=== PATIENT | female | born 1980 | race Caucasian/White ===

== ENCOUNTER 2022-08-27 20:31 | Emergency (ER) | payer MEDICAID, SELFPAY ==
[2022-08-27 20:31] VITALS: BMI 43.2
[2022-08-27 21:13] VITALS: BP 140/92; PULSE 103; RESP 16; TEMP 37.1; O2SAT 100
[2022-08-27] MEDS: ziprasidone 20 mg/mL SDV IM (21:15)
[2022-08-27] MEDS: LORazepam 2 mg/mL INJ 1 mL IM (21:15)
--- NOTE | 2022-08-27 21:16 | ECG_ITS ---
[facility] Test Date: 2022-08-27 Pat Name: Angela Lyles Department: Room: Gender: Female Site Surveyor: : 1980 Requested By: Walter Zhong Order Number: [id number] Qi MD: Coby Issa M.D. Measurements Intervals [place] Rate: 100 P: 143 AR: 198 QRS: 112 QRSD: 85 T: 121 QT: 334 QTc: 432 Interpretive Statements SINUS TACHYCARDIA ARM LEADS REVERSED [INVERTED P AND QRS IN I] ABNORMAL RHYTHM ECG No previous ECG available for comparison Electronically Signed On 08-28-2022 7:08:12 CNC LATHE PROGRAMMER by Coby Issa M.D. [email or web address] Magicalleg[facility] greenvilleBioMimetix Pharmaceuticalselect medical specialty [email or web address]/store/NU/[id number] f
[2022-08-27 21:33] LABS: Basophils # 0.1 10^3/uL (0.0-0.1); Basophils % 0.3 %; Eosinophils # 0.3 10^3/uL (0.0-0.8); Hematocrit 47.2 % (37.0-47.0); Hemoglobin 15.6 g/dL (11.5-15.3); Lymphocytes % 14.1 %; Mean Corpuscular HGB Conc 33.1 g/dL (30.0-36.0); Mean Corpuscular Hemoglobin 29.5 pg (28.0-34.0); Mean Corpuscular Volume 89.4 fl (81-99); Mean Platelet Volume 9.4 fL (7.4-10.4); Monocytes # 0.7 10^3/uL (0.2-0.9); Monocytes % 4.9 %; Neutrophils # 11.33 10^3/uL (1.8-7.7); Neutrophils % 78.3 %; Nucleated Red Blood Cells % 0 %; Platelet Count 325 10^3/cmm (130-400); Red Blood Count 5.28 10^6/uL (4.1-5.3); Red Cell Distribution Width 13.7 % (12.1-15.1); White Blood Count 14.5 10^3/uL (4.0-10.0)
--- NOTE | 2022-08-27 21:59 | ED.C_ITS ---
HPI - Psych General: Chief Complaint: Psychiatric Symptoms Stated Complaint: MHE Time Seen by Provider: 08/27/22 20:51 Source: patient and police History of Present Illness: 41-year-old female presenting in law enforcement custody in [facility]. She is yelling in the hallway of the emergency department. She is belligerent. She uses profanity. She despite repeated requests will not lower her voice. On my examination, she is tearful. She is argumentative. When asked if she had any thoughts about harming herself she said why not . When asked if she had a plan, she says, go ask my dad . She repeatedly asks to go smoke a cigarette despite being told she may not. When asked if she would like to be medicated with sedatives due to the fact that she is being so belligerent and verbally abusive to literally everyone around her, she states absolutely . She is clearly not rational in her thinking currently. MD complaint: feels depressed and altered mental status Onset (ago): hour(s) Duration: constant History of same: Yes Relieving factors: none Exacerbating factors: other Context: recent alcohol abuse Associated psychiatric symptoms: depression and suicidal ideation Associated symptoms: Deny auditory hallucinations Treatments prior to arrival: physical restraints If self harm: admits thoughts of self harm Review of Systems General: Reports: ROS unobtainable due to medical condition Const: Denies: fever(s) ENMT: Denies: throat pain Card: Denies: chest pain GI: Denies: vomiting Psych: Denies: auditory hallucinations Physical Exam Const: EXAM LIMITATIONS: altered mental status and behavioral limitations GENERAL APPEARANCE: combative, disheveled and odor of alcohol detected; not cooperative and not ill appearing NUTRITIONAL APPEARANCE: obese ORIENTATION/CONSCIOUSNESS: Yes awake, Yes oriented to person and Yes oriented to place; not oriented to time HENMT: COMMON NORMALS: normocephalic, atraumatic and Normal external nose present HEAD & SCALP: normocephalic and atraumatic FACE & SINUS: normal facial exam and face symmetric NOSE: Normal external nose present Eye: COMMON NORMALS: Equal, round and reactive pupils present and EOMs intact bilaterally PUPIL: Yes Equal, round and reactive pupils present Neck/C-Spine: COMMON NORMALS: full ROM GENERAL: Yes trachea midline Chest: CHEST: Yes Symmetrical chest wall rise Resp: COMMON NORMALS: normal respiratory effort, No use of accessory muscles and clear to auscultation bilaterally AUSCULTATION: clear to auscultation bilaterally Cardio: COMMON NORMALS: regular rate and regular rhythm RATE: regular rate RHYTHM: regular rhythm GI: COMMON NORMALS: Soft to palpation PALPATION: Yes Soft to palpation Extremity: COMMON NORMALS: no pedal edema Neuro: DOTTIE COMA SCALE: document GCS findings Dottie coma scale eye opening: Spontaneous Dottie coma scale verbal response: Orientated Dottie coma scale motor response: Obey commands [place] coma scale total score: 15 SENSORIUM/ORIENTATION: Yes oriented to person, Yes oriented to place and No oriented to time Psych: COMMON NORMALS: negative for cooperative ATTITUDE: Yes uncooper ative, Yes Belligerent attititude/behavior present, Yes agitated and Yes aggressive ACTIVITY/MOTOR BEHAVIOR: Yes appropriate eye contact and Yes psychomotor agitation SPEECH: Yes Pressured speech present and Yes slurred MOOD & AFFECT: Yes depressed mood and Yes expansive affect THOUGHT PROCESS: Circumstantial thought process present and Illogical thought process present THOUGHT CONTENT: Yes Suicidality present and No Hallucination(s) present ATTE NTION/CONCENTRATION: Yes attention grossly impaired and Yes concentration grossly impaired MEMORY/COGNITION: Yes cognition grossly intact INSIGHT: Limited insight present (Psych) JUDGEMENT: Limited judgement present (Psych) Skin: COMMON NORMALS: no rashes or lesions noted GENERAL SKIN EXAM: no rashes or lesions noted Face to Face: Restrn/Seclusion Events leading up to initiation: Verbalizing threat to self or others Evaluation of patient's immediate situation: Alert and oriented, Signs of physical distress and Signs of psychological distress Patient reaction since intervention applied: De-escalation/no displays of v iolent/destructive behavior Recent labs reviewed: Yes Review of medications: Yes Patient's current medical/behavioral condition: No new concerns since last ROS Need for restraint or seclusion is: No longer present Attending notified: Attending completed assessment Course Vital Signs: Vital signs: Vital Signs Temperature 98.8 F 08/27/22 21:13 Pulse Rate 74 08/28/22 03:45 Respiratory Rate 16 08/28/22 03:45 Blood Pressure 131/79 08/28/22 03:45 Pulse Oximetry 97 08/27/22 22:06 Oxygen Delivery Me thod 08/28/22 03:45 MDM - Psych Medical Decision Making Patient presented intoxicated on some form of substance although her alcohol level is nondetectable. She was actually asking for a sedative to calm her down. She was given ketamine, followed by Judit and Ativan with good result. Cuffs were removed. She did not have to be restrained after law enforcement took cuffs off. She has been cooperative after waking. 04:25-patient now awake. She is cooperative. She notes that while she has had suicidal ideations in the more distant past, she is not suicidal currently. She has no homicidal ideation. Laboratory shows a white blood cell count of 14.5 with hemoglobin of 15. Laboratories otherwise normal. Tylenol salicylate and alcohol levels are all negative. Urine drug screen is pending. Urinalysis is pending. EKG shows sinus tachycardia without ST change. Her urine drug screen is positive for amphetamine. She maintains that she is not suicidal or homicidal. She will be allowed discharge. Lab Data 08/27/22 21:25 08/27/22 21:25 Laboratory Results WBC 14.5 10^3/uL (4.0-10.0) H 08/27/22 21:25 RBC 5.28 10^6/uL (4.1-5.3) 08/27/22 21:25 Hgb 15.6 g/dL (11.5-15.3) H 08/27/22 21:25 Hct 47.2 % (37.0-47.0) H 08/27/22 21:25 MCV 89.4 fl (81-99) 08/27/22 21:25 MCH 29.5 pg (28.0-34.0) 08/27/22 21: MCHC 33.1 g/dL (30.0-36.0) 08/27/22 21:25 RDW 13.7 % (12.1-15.1) 08/27/22 21: Plt Count 325 10^3/cmm (130-400) 08/27/22 21: MPV 9.4 fL (7.4-10.4) 08/27/22 21:25 Neut % (Auto) 78.3 % 08/27/22: Lymph % (Auto) 14.1 % 08/27/22: [place] % (Auto) 4.9 % 08/27/22 21: Eos % (Auto) 2.0 % 08/27/22 21:25 Baso % (Auto) 0.3 % 08/27/22 21:25 Neut # (Auto) 11.33 10^3/uL (1.8-7.7) H 08/27/22 21:25 Lymph # (Auto) 2.0 10^3/uL (0.8-4.8) 08/27/22 21:25 [place] # (Auto) 0.7 10^3/uL (0.2-0.9) 08/27/22 21:25 Eos # (Auto) 0.3 10^3/uL (0.0-0.8) 08/27/22: Baso # (Auto) 0.1 10^3/uL (0.0-0.1) 08/27/22: Nucleated RBC % (auto) 0 % 08/27/22: Nucleated RBCs # 0.0 /100WBC 08/27/22 21:25 Sodium 135 mmol/L (136-145) L 08/27/22 21:25 Potassium 3.5 mmol/L (3.5-5.1) 08/27/22 21:25 Chloride 98 mmol/L (98-107) 08/27/22 21:25 Carbon Dioxide 24 mmol/L (22-29) 08/27/22 21:25 Anion Gap 16.5 (5-19) 08/27/22 21:25 BUN 9 mg/dL (6-20) 08/27/22 21:25 Creatinine 0.6 mg/dL (0.5-0.9) 08/27/22 21:25 GFR Calculation 111.3 mL/min (90-130) 08/27/22 21:25 Glucose 132 mg/dL (65-115) H 08/27/22 21:25 Calculated Osmolality 281 mOsm/kg (285-295) L 08/27/22:25 Calcium 9.3 mg/dL (8.5-10.5) 08/27/22 21:25 Total Bilirubin 0.7 mg/dL (0.15-1.2) 08/27/22 21:25 AST 19 U/L (0-32) 08/27/22 21:25 ALT 17 U/L (0-33) 08/27/22 21:25 Alkaline Phosphatase 82 U/L (35-105) 08/27/22 21:25 Total Protein 7.9 g/dL (6.6-8.7) 08/27/22 21:25 Albumin 4.1 g/dL (3.5-5.2) 08/27/22 21:25 Globulin 3.8 g/dL (1.3-4.6) 08/27/22 21:25 TSH 0.85 uIU/mL (0.27-4.20) 08/27/22 21:25 HCG, Qual Negative (Negative) 08/28/22 04:00 Urine Color Yellow (Yellow) 08/28/22 04:00 Urine Appearance Cloudy (CLEAR) A 08/28/22 04:00 Urine pH 5 (5-7) 08/28/22 04:00 Ur Specific [place] 1.030 (1.005-1.030) 08/28/22 04:00 Urine Protein Trace (Negative) 08/28/22 04:00 Urine Glucose (UA) Norm (Normal) 08/28/22 04:00 Urine Ketones 1+ (Negative) H 08/28/22 04:00 Urine Blood Neg (Negative) 08/28/22 04:00 Urine Nitrate Negative (Negative) 08/28/22 04:00 Urine Bilirubin 1+ (Negative) H 08/28/22 04:00 Urine Urobilinogen 1 mg/dL (Negative) H 08/28/22 04:00 Ur Leukocyte Esterase Negative (Negative) 08/28/22 04:00 Urine RBC 0-4 /hpf (0-2) H 08/28/22 04:00 Urine WBC 0-4 /hpf (0-5) H 08/28/22 04:00 Ur Squamous Epith Cells 0-4 /hpf (0-5) H 08/28/22 04:00 Other Crystals Amm biurate /hpf 08/28/22 04:00 Amorphous Sediment 4+ /hpf 08/28/22 04:00 Urine Bacteria Trace /hpf (NONE) 08/28/22 04:00 Urine Mucus 2+ /hpf 08/28/22 04:00 Salicylates < 0.3 mg/dL (3-10) L 08/27/22 21:25 Urine Opiates Screen Negative ng/mL (Negative) 08/28/22 04:00 Acetaminophen < 5.0 ug/mL (10-30) L 08/27/22 21:25 Ur Barbiturates Screen Negative ng/mL (Negative) 08/28/22 04:00 Ur Phencyclidine Scrn Negative ng/mL (Negative) 08/28/22 04:00 Ur Amphetamines Screen Positive ng/mL (Negative) H 08/28/22 04:00 U Benzodiazepines Scrn Positive ng/mL (Negative) H 08/28/22 04:00 Urine Cocaine Screen Negative ng/mL (Negative) 08/28/22 04:00 U Marijuana (THC) Screen Negative ng/mL (Negative) 08/28/22 04:00 Ethyl Alcohol < 10 mg/dL (0-10) 08/27/22 21:25 SARS-CoV-2 Ag (Rapid) Negative (Negative) 08/28/22 04:00 Discharge Plan Discharge Patient Disposition: Home Clinical Impression: Drug-induced psychotic disorder Condition: Stable Discharge Orders: Discharge ED (Routine); Ordered 08/28/22 Ordered By: Walter Rose Patient Instructions: Methamphetamine Use Disorder (ED) Activity Restrictions/Additional Instructions: Return for any thoughts or wishes with a current plan to harm your self or anyone else. Coding Level of Care Code ED Roll Picker for Benjamín Fwd Exam Comprehensive
[2022-08-27 22:06] VITALS: PULSE 100; RESP 26; O2SAT 97
[2022-08-27 22:07] LABS: Alanine Aminotransferase 17 U/L (0-33); Albumin Level 4.1 g/dL (3.5-5.2); Alkaline Phosphatase 82 U/L (35-105); Anion Gap 16.5 (5-19); Aspartate Amino Transferase 19 U/L (0-32); Blood Urea Nitrogen 9 mg/dL (6-20); Calcium 9.3 mg/dL (8.5-10.5); Carbon Dioxide 24 mmol/L (22-29); Chloride 98 mmol/L (98-107); Globulin 3.8 g/dL (1.3-4.6); Glomerular Filtration Rate 111.3 mL/min (90-130); Glucose 132 mg/dL (65-115); Osmolality Calculated 281 mOsm/kg (285-295); Potassium 3.5 mmol/L (3.5-5.1); Sodium 135 mmol/L (136-145); Thyroid Stimulating Hormone 0.85 uIU/mL (0.27-4.20); Total Bilirubin 0.7 mg/dL (0.15-1.2); Total Protein 7.9 g/dL (6.6-8.7)
[2022-08-27 22:17] LABS: Acetaminophen < 5.0 ug/mL (10-30); Salicylate < 0.3 mg/dL (3-10)
[2022-08-27 23:46] LABS: Alcohol Level < 10 mg/dL (0-10)
[2022-08-28 03:45] VITALS: BP 131/79; PULSE 74; RESP 16
[2022-08-28 04:14] LABS: HCG Qualitative Urine. Negative (Negative)
--- NOTE | 2022-08-28 04:19 | PC.NURSE ---
Pt was swabbed for covid and asked to give a urine sample. Pt sat on bedside commode and stated, I don't have any pee in me! Pt was informed she would need to give a urine sample and a cath may be necessary. Pt stated that's fine I have no pee in me! In and out cath was performed and urine obtained then sent to lab. Pt told this nurse she has wanted to hurt herself in the past but she does not currently want to hurt herself or anyone else.
[2022-08-28 04:25] LABS: Amphetamines Screen Urine Positive (Negative); Barbiturates Screen Urine Negative (Negative); Benzodiazepines Screen Urine Positive (Negative); Cocaine Screen Urine Negative (Negative); Opiate Screen Urine Negative (Negative); PCP Screen Urine Negative (Negative); THC Screen Urine Negative (Negative)
[2022-08-28 04:33] LABS: Add Urine Microscopic? YES; Bacteria Urine TRACE /hpf; Bilirubin Urine 1+ (Negative); Blood Urine Neg (Negative); Glucose Urine UA Norm (Normal); Ketones Urine 1+ (Negative); Leukocyte Esterase Urine Negative (Negative); Nitrate Urine Negative (Negative); Protein Urine Trace (Negative); RBC Urine 0-4 /hpf (0-2); Squamous Epithelial Cell Urine 0-4 /hpf (0-5); Urine Appearance Cloudy (CLEAR); Urine Color Yellow (Yellow); Urobilinogen Urine 1 mg/dL (Negative); WBC Urine 0-4 /hpf (0-5); pH Urine 5 (5-7)
[2022-08-28 04:34] LABS: Add Urine Culture? No; Amorphous Sediment Urine 4+ /hpf; Mucus Urine 2+ /hpf; Other Crystals Urine AMM BIURATE /hpf; SARS Covid-2 Antigen Negative (Negative)
== END 2022-08-28 05:12 | disposition home or self-care (01) ==
PROVIDERS: Emergency Provider Emergency Medicine
DX: F19.959 Other psychoactive substance use, unspecified with psychoactive substance-induced psychotic disorder, unspecified (principal); Z20.822 Contact with and (suspected) exposure to COVID-19
CPT/HCPCS: 36415; 80053; 80306; 80307; 81001; 81025; 84443; 85025; 87426; 93005; 96372; 99284; J2060; J3486; J3490

== ENCOUNTER 2024-11-13 09:32 | Outpatient (CLI) | payer MEDICAID, SELFPAY ==
--- NOTE | 2024-11-13 09:40 | MM_ITS ---
WS: [id number] BILATERAL 3D TOMOSYNTHESIS DIGITAL SCREENING MAMMOGRAPHY WITH CAD CLINICAL INFORMATION: SCREENING HISTORY: Screening mammogram. No current complaints. COMPARISON: Baseline TECHNIQUE: Bilateral CC and MLO views. FINDINGS: Scattered fibroglandular densities bilaterally. 7 mm ovoid nodule upper inner RIGHT breast may represent an intramammary lymph node but indeterminate. No comparisons. Recommend further evaluation with RIGHT breast diagnostic mammography and ultrasound. Incidental punctate and skin calcifications. Unremarkable LEFT breast MM/MM scr tomosynthesis [id number] IMPRESSION: DENSITY: There are scattered areas of fibroglandular density. BI-RADS: 0 - Incomplete: Need additional imaging evaluation. FOLLOW UP: Need Additional Imaging Recommend RIGHT breast diagnostic mammography and ultrasound
== END 2024-11-13 09:33 | disposition home or self-care (01) ==
LOC: MOBLMAM 09:35
PROVIDERS: PCP Nurse Practitioner Family; Visit Provider Nurse Practitioner Family
DX: Z12.31 Encounter for screening mammogram for malignant neoplasm of breast (principal); R92.323 Mammographic fibroglandular density, bilateral breasts; N63.12 Unspecified lump in the right breast, upper inner quadrant; R92.1 Mammographic calcification found on diagnostic imaging of breast
CPT/HCPCS: 77063; 77067

== ENCOUNTER 2024-12-06 10:22 | Outpatient (CLI) | payer MEDICAID, SELFPAY ==
--- NOTE | 2024-12-06 10:25 | MM_ITS ---
WS: [id number] RIGHT 3D TOMOSYNTHESIS DIGITAL MAMMOGRAPHY WITH CAD CLINICAL INFORMATION: OTHER ABN INCONCLUSIVE FINDINGS ON BREAST IMAGING HISTORY: Additional views COMPARISON: 11/13/2024 TECHNIQUE: 2 views of the right breast were obtained. FINDINGS: Scattered fibroglandular densities of the right breast. Stable previously described ovoid nodule measuring 6 mm inner quadrant RIGHT breast. Ultrasound described below. ULTRASOUND BREAST RIGHT TECHNIQUE: Ultrasound right breast focused area of concern. CLINICAL INFORMATION: OTHER ABN INCONCLUSIVE FINDINGS ON BREAST IMAGING FINDINGS: Ultrasound inner quadrant RIGHT breast. Small ovoid nodule at the 12 o'clock position measuring 5 x 4 x 6 mm appears to represent a small complex cyst. MM/MM diag RT tomosynthesis [id number] IMPRESSION: DENSITY: There are scattered areas of fibroglandular density. BI-RADS: 2 - Benign. FOLLOW UP: 1 Year Follow-up Recommend return to annual screening mammography.
== END 2024-12-06 10:23 | disposition home or self-care (01) ==
PROVIDERS: PCP Nurse Practitioner Family; Visit Provider Nurse Practitioner Family
DX: R92.8 Other abnormal and inconclusive findings on diagnostic imaging of breast (principal); R92.321 Mammographic fibroglandular density, right breast; N63.15 Unspecified lump in the right breast, overlapping quadrants
CPT/HCPCS: 76642; 77061; G0279